=== PATIENT | female | born 1970 ===

== ENCOUNTER 2019-02-21 07:50 | Outpatient (CLI) | payer OTHER | END 2019-02-21 10:14 | disposition home or self-care (01) | LOC: SONOGRAMA 07:50 | DX: E04.1 Nontoxic single thyroid nodule (principal) ==

== ENCOUNTER 2021-11-03 07:51 | Outpatient (CLI) | payer OTHER | END 2021-11-03 07:57 | disposition home or self-care (01) | LOC: SONOGRAMA 07:51 | PROVIDERS: ATTEND Pathology Anatomic Pathology & Clinical Pathology | DX: E04.2 Nontoxic multinodular goiter (principal) ==